=== PATIENT | male | born 1960 | race Caucasian/White ===

== ENCOUNTER 2018-05-08 08:04 | Emergency (ER) | payer BC ==
[2018-05-08] MEDS ORDERED: Sodium Chloride 0.9% 10 ML Syringe FLUSH PRN (08:14)
[2018-05-08] MEDS ORDERED: Ondansetron 4 MG Tab.DIS PO ONE (08:14)
[2018-05-08] MEDS ORDERED: Sodium Chloride 0.9% 1,000 ML IV SCH (08:15)
[2018-05-08] MEDS ORDERED: Ketorolac 60 MG/2 ML SDV IVPUSH ONE (08:16)
[2018-05-08] MEDS ORDERED: HYDROmorphone 2 MG/ML Syringe IVPUSH ONE (09:20)
[2018-05-08] MEDS: HYDROmorphone 2 MG/ML SDV ONE ×2 (09:28→09:31)
[2018-05-08] MEDS ORDERED: Tamsulosin 0.4 MG Cap.ER ONE ×2 (10:00→10:16)
[2018-05-08] MEDS ORDERED: Ondansetron 4 MG Tab.DIS ONE (10:00)
[2018-05-08] MEDS ORDERED: Acetaminophen/oxyCODONE 325-5 MG Tab ONE (10:00)
--- NOTE | 2018-05-08 10:17 | EDM.PDOC ---
ED HPI GENERAL MEDICAL PROBLEM - General Chief Complaint: Flank Pain Stated Complaint: RIGHT LOWER QUAD PAIN Time Seen by Provider: 05/08/18 08:05 Source of Information: Reports: Patient, Family History Limitations: Reports: No Limitations - History of Present Illness INITIAL COMMENTS - FREE TEXT/NARRATIVE: Patient is a 58 year old man with a history of Kidney Stones 10 years ago and 2 years ago. It is always on his right side. Yesterday he had two bouts of renal colic: the first at 5 am that lasted 1 hour and the second at 2 pm that lasted 30 minutes. He was awakened with morning with severe right flank pain radiating to the right lower abdomen. No fever but some mild chills with pain. He also had some nausea with the pain this time. He also has had problems sleeping recently from joint pain. No other complaints. 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 Pain Score (Numeric/FACES): 10 - Related Data Allergies Allergy/AdvReac Type Severity Reaction Status Date / Time No Known Allergies Allergy Verified 05/08/18 09:08 Home Meds: Home Meds NK [No Known Home Meds] 05/08/18 [History] ED ROS GENERAL - Review of Systems Review Of Systems: See Below Constitutional: Reports: No Symptoms HEENT: Reports: No Symptoms Respiratory: Reports: No Symptoms Cardiovascular: Reports: No Symptoms Endocrine: Reports: No Symptoms GI/Abdominal: Reports: Abdominal Pain (Right flank pain radiating to the right lower abdomen.) : Reports: Flank Pain Musculoskeletal: Reports: No Symptoms Skin: Reports: No Symptoms Neurological: Reports: No Symptoms Psychiatric: Reports: No Symptoms Hematologic/Lymphatic: Reports: No Symptoms Immunologic: Reports: No Symptoms ED EXAM, RENAL/ - Physical Exam Exam: See Below Exam Limited By: No Limitations General Appearance: Alert, WD/WN, No Apparent Distress Eye Exam: Bilateral Eye: EOMI, Normal Fundi, Normal Inspection Ears: Normal External Exam, Normal Canal, Hearing Grossly Normal, Normal TMs Nose: Normal Inspection, Normal Mucosa, No Blood Throat/Mouth: Normal Inspection, Normal Lips, Normal Teeth, Normal Gums, Normal Oropharynx, Normal Voice, No Airway Compromise Head: Atraumatic, Normocephalic Neck: Normal Inspection, Supple, Non-Tender, Full Range of Motion Respiratory/Chest: No Respiratory Distress, Lungs Clear, Normal Breath Sounds, No Accessory Muscle Use, Chest Non-Tender Cardiovascular: Normal Peripheral Pulses, Regular Rate, Rhythm, No Edema, No Gallop, No JVD, No Murmur, No Rub GI/Abdominal: Normal Bowel Sounds, Soft, Non-Tender, No Organomegaly, No Distention, No Abnormal Bruit, No Mass Neurological: Alert, Oriented, CN II-XII Intact, Normal Cognition, Normal Gait, Normal Reflexes, No Motor/Sensory Deficits Psychiatric: Normal Affect, Normal Mood Skin Exam: Warm, Dry, Intact, Normal Color, No Rash Lymphatic: No Adenopathy Course - Vital Signs Text/Narrative:: Uneventful ED course. He was given 1 liter of Normal Saline, 30 mg of IV Toradol , 1 mg of IV Dilaudid and 4 mg of IV Zofran. His pain went from a 9.10 to 1/10 level and he felt much better and wanted to go home. His case was discussed with Dr. Delacruz, a urologist train controller in [place] and he would like him to push fluids, take Flomax 0.4 mg po daily, Percocet 5/325 mg one tablet q 4 hours as needed for pain, and Zofran 4 mg po q 4 hours for nausea. If he cannot tolerate the pain at home, he will need to be put into observation to push IV fluids and give IV pain medications. Last Recorded V/S: Last Vital Signs Temp 37.2 C 05/08/18 09:35 Pulse 54 L 05/08/18 09:35 Resp 16 05/08/18 09:35 BP 132/82 05/08/18 09:35 Pulse Ox 100 05/08/18 09:35 - Orders/Labs/Meds Orders: Active Orders 24 hr Category Date Time Status Abdomen Pelvis wo Cont [CT] Stat Exams 05/08/18 08:13 Taken Sodium Chloride 0.9% [Normal Saline] 1,000 ml Med 05/08/18 08:15 Active IV ASDIRECTED Sodium Chloride 0.9% [Saline Flush] Med 05/08/18 08:14 Active 10 ml FLUSH ASDIRECTED PRN Saline Lock Insert [OM.PC] Routine Oth 05/08/18 08:14 Ordered Medication Orders Sodium Chloride (Normal Saline) 1,000 mls @ 1,000 mls/hr IV ASDIRECTED MELINDA Last Admin: 05/08/18 08:30 Dose: 1,000 mls/hr Sodium Chloride (Saline Flush) 10 ml FLUSH ASDIRECTED PRN PRN Reason: Keep Vein Open Labs: Laboratory Tests 05/08/18 05/08/18 05/08/18 Range/Units 08:45 08:45 08:45 WBC 12.0 H (4.0-11.0) K/uL RBC 4.80 (4.50-6.50) M/uL Hgb 16.4 (13.0-18.0) g/dL Hct 46.1 (40.0-54.0) % MCV 96 (76-96) fL MCH 34.2 H (27.0-32.0) pg MCHC 35.6 H (31.0-35.0) g/dL RDW 12.0 (11.0-16.0) % Plt Count 151 D (150-400) K/uL MPV 10.3 H (6.0-10.0) fL Neut % (Auto) 86.2 H (45.0-70.0) % Lymph % (Auto) 7.2 L (20.0-40.0) % [place] % (Auto) 5.6 (3.0-10.0) % Eos % (Auto) 0.7 L (1.0-5.0) % Baso % (Auto) 0.3 (0.0-0.5) % Neut # (Auto) 10.37 H (2.00-7.50) K/uL Lymph # (Auto) 0.86 L (1.50-4.00) K/uL [place] # (Auto) 0.67 (0.20-0.80) K/uL Eos # (Auto) 0.08 (0.04-0.40) K/uL Baso # (Auto) 0.04 (0.02-0.10) K/uL Sodium 140 (136-145) mmol/L Potassium 3.8 (3.5-5.1) mmol/L Chloride 107 (98-107) mmol/L Carbon Dioxide 29.4 (21.0-32.0) mmol/L Anion Gap 7.4 (5.0-15.0) mmol/L BUN 21 (8-26) mg/dL Creatinine 1.32 H D (0.70-1.30) mg/dL Est Cr Clr Drug Dosing 64.52 mL/min Estimated GFR (MDRD) 56 L (>60) MLS/MIN BUN/Creatinine Ratio 15.9 (6-25) Glucose 121 H (74-100) mg/dL Calcium 8.2 L (8.5-10.1) mg/dL Total Bilirubin 0.4 (0.0-1.0) mg/dL AST 18 (15-37) U/L ALT 31 (12-78) U/L Alkaline Phosphatase 75 (46-116) U/L Total Protein 6.5 (6.4-8.2) g/dL Albumin 3.2 L (3.4-5.0) g/dL Globulin 3.3 (2.2-4.2) g/dL Albumin/Globulin Ratio 1.0 (0.8-2.0) Urine Color Yellow Urine Appearance Slightly cloudy (CLEAR) Urine pH 5.5 (5.0-8.0) Ur Specific [place] >= 1.030 (1.003-1.030) Urine Protein 100 H (NEGATIVE) mg/dL Urine Glucose (UA) Negative (NEGATIVE) mg/dL Urine Ketones Trace H (NEGATIVE) mg/dL Urine Occult Blood Moderate H (NEGATIVE) Urine Nitrite Negative (NEGATIVE) Urine Bilirubin Small H (NEGATIVE) Urine Urobilinogen 1.0 (0.2-1.0) E.U./dL Ur Leukocyte Esterase Negative (NEGATIVE) Urine RBC Semi-packed H /HPF Urine WBC 0-5 H /HPF Ur Squamous Epith Cells Few /HPF Calcium Oxalate Crystal Few /HPF Urine Bacteria Not seen /HPF Meds: Medications Generic Name Dose Route Start Last Admin Trade Name Freq PRN Reason Stop Dose Admin Sodium Chloride 1,000 mls @ 1,000 mls/hr 05/08/18 08:15 05/08/18 08:30 Normal Saline IV 1,000 mls/hr ASDIRECTED MELINDA Administration Sodium Chloride 10 ml 05/08/18 08:14 Saline Flush FLUSH ASDIRECTED PRN Keep Vein Open Discontinued Medications Generic Name Dose Route Start Last Admin Trade Name Pasquale PRN Reason Stop Dose Admin Hydromorphone HCl Confirm 05/08/18 09:28 05/08/18 09:31 Dilaudid Administered 05/08/18 09:29 Not Given Dose 2 mg .ROUTE .STK-MED ONE Hydromorphone HCl 1 mg 05/08/18 09:20 05/08/18 09:20 Dilaudid IVPUSH 05/08/18 09:21 1 mg ONETIME ONE Administration Ketorolac Tromethamine 30 mg 05/08/18 08:16 05/08/18 08:22 Toradol IVPUSH 05/08/18 08:17 30 mg ONETIME ONE Administration Ondansetron HCl 4 mg 05/08/18 08:14 05/08/18 08:15 Zofran Odt PO 05/08/18 08:15 4 mg ONETIME ONE Administration Departure - Departure Time of Disposition: 10:34 Disposition: Home, Self-Care 01 Condition: Good Clinical Impression: Renal colic on right side - Discharge Information Referrals: PCP,None [Primary Care Provider] - - My Orders Last 24 Hours: My Active Orders 05/08/18 08:13 Abdomen Pelvis wo Cont [CT] Stat 05/08/18 08:14 Sodium Chloride 0.9% [Saline Flush] 10 ml FLUSH ASDIRECTED PRN Saline Lock Insert [OM.PC] Routine 05/08/18 08:15 Sodium Chloride 0.9% [Normal Saline] 1,000 ml IV ASDIRECTED - Assessment/Plan Last 24 Hours: My Active Orders 05/08/18 08:13 Abdomen Pelvis wo Cont [CT] Stat 05/08/18 08:14 Sodium Chloride 0.9% [Saline Flush] 10 ml FLUSH ASDIRECTED PRN Saline Lock Insert [OM.PC] Routine 05/08/18 08:15 Sodium Chloride 0.9% [Normal Saline] 1,000 ml IV ASDIRECTED
--- NOTE | 2018-05-08 20:27 | CT ---
CLINICAL DATA: Renal Colic. UNENHANCED ABDOMEN AND PELVIC CT, 08 MAY 2018: Multislice acquisition through the abdomen and pelvis without IV or oral contrast was performed. Comparison is made to a prior enhanced abdomen and pelvic CT dated 15 August 2013. There are atelectatic changes in the dependent portion of both lung bases. The lung bases are otherwise clear. The unenhanced liver appears normal. The gallbladder appears normal. The spleen appears normal. The pancreas appears normal. There are multiple low-density lesions noted within the right and left adrenal glands. These are most likely benign. There are small nonobstructing renal calculi bilaterally. There is a 4 mm right ureteral calculus located in the right ureter at the L4 level. There is hydronephrosis and hydroureter proximal to it, consistent with obstruction. There is also perinephric fat stranding and fluid on the right. This is most likely related to obstruction. Pyelonephritis should at least be considered. The kidneys and collecting systems are otherwise unremarkable. There is a small amount of fluid within the bladder. It appears grossly normal. The prostate is mildly enlarged. The appendix is not dilated. No evidence of appendicitis. There is mild diverticulosis of the descending colon. No evidence of diverticulitis. There is an umbilical hernia containing fat. There are bilateral inguinal hernias containing fat. No free air. No free fluid. No dilated loops of bowel. No adenopathy. IMPRESSION: A 4 mm proximal right ureteral calculus with obstruction, as discussed above. Other findings as discussed above. Job: [id number] [facility]
== END 2018-05-08 10:25 | disposition home or self-care (01) ==
LOC: LB.ED 08:04
DX: N13.2 Hydronephrosis with renal and ureteral calculous obstruction (principal)
CPT/HCPCS: 36415; 74176; 80053; 81001; 85025; 96361; 96374; 96375; 99284-25; A9270-GY; J1170; J1885; J7030

== ENCOUNTER 2021-01-28 15:25 | Emergency (ER) | payer BC ==
--- NOTE | 2021-01-28 15:57 | EDM.PDOC ---
ED HPI GENERAL MEDICAL PROBLEM - General Chief Complaint: General Stated Complaint: ABDOMINAL PAIN Time Seen by Provider: 01/28/21 15:39 Source of Information: Reports: Patient History Limitations: Reports: No Limitations - History of Present Illness INITIAL COMMENTS - FREE TEXT/NARRATIVE: patient was seen in the clinic earlier today for a c/o b/l abdominal pain. h/o kidney stones in the past. Reports that he started to c/o b/l flank pains since yesterday, sharp pain on/off. Associated with nausea and dry heave. No fever or chills. Patient also reports decreased appetite. Last kidney stones was 2 years ago. Labs were done in the clinic - showed WBC 12, UA ++ RBC, and normal CMP. Onset: Gradual Duration: Day(s): (2) Location: Reports: Abdomen Abdominal Pain Score (Numeric/FACES): 3 - Related Data Allergies Allergy/AdvReac Type Severity Reaction Status Date / Time No Known Allergies Allergy Verified 05/08/18 09:08 Home Meds: Home Meds NK [No Known Home Meds] 05/08/18 [History] Social & Family History - Tobacco Use Tobacco Use Status *Q: Current Every Day Tobacco User Years of Tobacco use: 40 Packs/Tins Daily: 0.5 - Caffeine Use Caffeine Use: Reports: None - Recreational Drug Use Recreational Drug Use: No ED ROS GENERAL - Review of Systems Review Of Systems: See Below Constitutional: Reports: No Symptoms HEENT: Reports: No Symptoms Respiratory: Reports: No Symptoms Cardiovascular: Reports: No Symptoms GI/Abdominal: Reports: Abdominal Pain, Anorexia, Nausea Musculoskeletal: Reports: No Symptoms Skin: Reports: No Symptoms Neurological: Reports: No Symptoms ED EXAM, GENERAL - Physical Exam Exam: See Below Exam Limited By: No Limitations General Appearance: Alert, Mild Distress Eye Exam: Bilateral Eye: EOMI Respiratory/Chest: No Respiratory Distress Cardiovascular: Normal Peripheral Pulses GI/Abdominal: Normal Bowel Sounds, Soft, Non-Tender Back Exam: CVA Tenderness (R), CVA Tenderness (L) Extremities: Normal Inspection, Normal Range of Motion Neurological: Alert, Oriented Psychiatric: Normal Affect Course - Vital Signs Last Recorded V/S: Last Vital Signs Temp 37.1 C 01/28/21 15:25 Pulse 67 01/28/21 15:25 Resp 16 01/28/21 15:25 BP 131/84 01/28/21 15:25 Pulse Ox 99 01/28/21 15:25 - Orders/Labs/Meds Orders: Active Orders 24 hr Category Date Time Status Ciprofloxacin [Ciprofloxacin HCl] Med 01/28/21 17:44 Once 500 mg PO ONETIME ONE Sodium Chloride 0.9% [Saline Flush] Med 01/28/21 16:00 Active 10 ml FLUSH ASDIRECTED PRN Tamsulosin [Flomax] Med 01/28/21 17:44 Once 0.4 mg PO ONETIME ONE Saline Lock Insert [OM.PC] Routine Oth 01/28/21 16:00 Ordered Medication Orders Sodium Chloride (Sodium Chloride 0.9% 10 Ml Syringe) 10 ml FLUSH ASDIRECTED PRN PRN Reason: Keep Vein Open Meds: Medications Generic Name Dose Route Start Last Admin Trade Name Freq PRN Reason Stop Dose Admin Sodium Chloride 10 ml 01/28/21 16:00 Sodium Chloride 0.9% 10 Ml Syringe FLUSH ASDIRECTED PRN Keep Vein Open Discontinued Medications Generic Name Dose Route Start Last Admin Trade Name Freq PRN Reason Stop Dose Admin Sodium Chloride 1,000 mls @ 999 mls/hr 01/28/21 16:16 01/28/21 16:23 Normal Saline IV 01/28/21 17:16 999 mls/hr .BOLUS ONE Administration Ketorolac Tromethamine Confirm 01/28/21 16:25 01/28/21 16:26 Ketorolac 30 Mg/Ml Sdv Administered 01/28/21 16:26 Not Given Dose 30 mg .ROUTE .STK-MED ONE Ketorolac Tromethamine 30 mg 01/28/21 16:16 01/28/21 16:17 Ketorolac 30 Mg/Ml Sdv IVPUSH 01/28/21 16:17 30 mg ONETIME ONE Administration Ondansetron HCl 4 mg 01/28/21 16:01 01/28/21 16:14 Ondansetron 4 Mg/2 Ml Sdv IVPUSH 01/28/21 16:02 4 mg ONETIME ONE Administration Ondansetron HCl Confirm 01/28/21 16:23 01/28/21 16:40 Ondansetron 4 Mg/2 Ml Sdv Administered 01/28/21 16:24 Not Given Dose 4 mg .ROUTE .STK-MED ONE Ondansetron HCl Confirm 01/28/21 16:24 01/28/21 16:40 Ondansetron 4 Mg/2 Ml Sdv Administered 01/28/21 16:25 Not Given Dose 4 mg .ROUTE .STK-MED ONE - Re-Assessments/Exams Free Text/Narrative Re-Assessment/Exam: Upon reviewing the labs and images done at the clinic It concluded that patient is experiencing a renal colicky pain with a slight UTI. CT abd/pelv - showed a b/l ureteric stones. Left 5.5mm with mild hydronephrosis,,, Right 2mm stone. IV fluids NS bolus Pain control with IV Toradol 30mg. Nausea control with Zofran. pain was controlled - patient reports significant improvement in symptoms Departure - Departure Time of Disposition: 17:45 Disposition: Home, Self-Care 01 Condition: Good Clinical Impression: Renal colic on right side, UTI, Urinary tract infectious disease, Renal colic on left side - Discharge Information *PRESCRIPTION DRUG MONITORING PROGRAM REVIEWED*: Not Applicable *COPY OF PRESCRIPTION DRUG MONITORING REPORT IN PATIENT SO: Not Applicable Instructions: Kidney Stones, [id number], Renal Colic, [id number] Referrals: PCP,None [Primary Care Provider] - Forms: ED Department Discharge Sepsis Event Note (ED) - Evaluation Sepsis Screening Result: No Definite Risk - Focused Exam Vital Signs: Vital Signs Temp Pulse Resp BP Pulse Ox 01/28/21 15:25 37.1 C 67 16 131/84 99 - Problem List & Annotations (1) Renal colic on right side SNOMED Code(s): 3062576 Code(s): N23 - UNSPECIFIED RENAL COLIC Status: Acute Priority: Low Cur rent Visit: Yes (2) Renal colic on left side SNOMED Code(s): 5560642 Code(s): N23 - UNSPECIFIED RENAL COLIC Status: Acute Priority: Low Current Visit: Yes (3) UTI, Urinary tract infectious disease SNOMED Code(s): 06016197 Code(s): N39.0 - URINARY TRACT INFECTION, SITE NOT SPECIFIED Status: Acute Priority: Low Current Visit: Yes - My Orders Last 24 Hours: My Active Orders 01/28/21 16:00 Sodium Chloride 0.9% [Saline Flush] 10 ml FLUSH ASDIRECTED PRN Saline Lock Insert [OM.PC] Routine 01/28/21 17:44 Ciprofloxacin [Ciprofloxacin HCl] 500 mg PO ONETIME ONE Tamsulosin [Flomax] 0.4 mg PO ONETIME ONE - Assessment/Plan Last 24 Hours: My Active Orders 01/28/21 16:00 Sodium Chloride 0.9% [Saline Flush] 10 ml FLUSH ASDIRECTED PRN Saline Lock Insert [OM.PC] Routine 01/28/21 17:44 Ciprofloxacin [Ciprofloxacin HCl] 500 mg PO ONETIME ONE Tamsulosin [Flomax] 0.4 mg PO ONETIME ONE Plan: - increase fluids intake to at least 3 liters a day - take antibiotics as prescribed - follow up with your PCP in 5-7 days - return to the ER if symptoms got worse or any concerns - Use a filter cone when you void - and return the stone to your PCp for lab an alysis
[2021-01-28] MEDS ORDERED: Sodium Chloride 0.9% 10 ML Syringe FLUSH PRN (16:00)
[2021-01-28] MEDS ORDERED: Ondansetron 4 MG/2 ML SDV IVPUSH ONE (16:01)
[2021-01-28] MEDS ORDERED: Sodium Chloride 0.9% 1,000 ML IV ONE (16:16)
[2021-01-28] MEDS: Ketorolac 30 MG/ML SDV IVPUSH ONE ×2 (16:17→16:38)
[2021-01-28] MEDS ORDERED: Ondansetron 4 MG/2 ML SDV ONE ×2 (16:23→16:24)
[2021-01-28] MEDS ORDERED: Ketorolac 30 MG/ML SDV ONE (16:25)
[2021-01-28] MEDS ORDERED: Tamsulosin 0.4 MG Cap.ER PO ONE (17:44)
[2021-01-28] MEDS ORDERED: Ciprofloxacin 500 MG Tab PO ONE (17:44)
[2021-01-28] MEDS ORDERED: Ketorolac 10 MG Tab ONE ×2 (17:45→17:47)
== END 2021-01-28 18:00 | disposition home or self-care (01) ==
LOC: LB.ED 15:34
DX: N39.0 Urinary tract infection, site not specified (principal); N23 Unspecified renal colic; Z72.0 Tobacco use
CPT/HCPCS: 96374; 96375; 99284; 99284-25; A9270-GY; J1885; J2405; J7030